=== PATIENT | female | born 1975 ===

== ENCOUNTER 2018-06-18 14:00 | Outpatient (CLI) | payer OTHER | END 2018-06-18 14:01 | disposition home or self-care (01) | LOC: C.USIC 14:00 | DX: N93.9 Abnormal uterine and vaginal bleeding, unspecified (principal) ==

== ENCOUNTER 2018-07-13 22:22 | Emergency (ER) | payer OTHER ==
[2018-07-13 22:33] VITALS: RESP 18; O2SAT 98
--- NOTE | 2018-07-13 23:23 | C.PDOC ---
History Of Present Illness 42 year old female presents to the ED c/o itching of the eyes, ears, throat and face for the past weeks. Patient also c/o sore throat and intermittent headache. Patient reports having seasonal allergies back in [place], first time in the [place]. Patient denies fever, chills, visual changes, SOB, wheezing, nausea, vomit, rash. Time Seen by Provider: 07/13/18 22:48 Chief Complaint (Nursing): Cough, Cold, Congestion History Per: Patient History/Exam Limitations: no limitations Onset/Duration Of Symptoms: Days Current Symptoms Are (Timing): Still Present Recent travel outside of the [place]: No Additional History Per: Patient Past Medical History Reviewed: Historical Data, Nursing Documentation, Vital Signs Vital Signs: Last Vital Signs Temp 98.8 F 07/13/18 22:28 Pulse 77 07/13/18 22:28 Resp 18 07/13/18 22:28 BP 139/90 07/13/18 22:28 Pulse Ox 98 07/13/18 22:28 Primary Care Provider: FAMILY PROVIDER,NO - Medical History PMH: No Chronic Diseases Surgical History: No Surg Hx Family History: States: Unknown Family Hx - Social History Hx Alcohol Use: No Hx Substance Use: No Review Of Systems Constitutional: Negative for: Fever, Chills Eyes: Positive for: Other (itching) ENT: Positive for: Throat Pain. Negative for: Ear Discharge, Nose Discharge, Nose Congestion Respiratory: Negative for: Cough, Shortness of Breath, Wheezing Gastrointestinal: Negative for: Vomiting, Diarrhea Skin: Negative for: Rash Neurological: Positive for: Headache. Negative for: Dizziness Physical Exam - Physical Exam Appears: Non-toxic, No Acute Distress Skin: Normal Color, Warm, Dry, No Rash Head: Atraumatic, Normacephalic Eye(s): bilateral: Normal Inspection (tearing ), PERRL, EOMI Ear(s): Bilateral: Normal Nose: Other (enlarged nasal turbinates) Tongue: No Swelling Lips: No Swelling Throat: Normal, No Erythema, No Exudate Neck: Normal ROM, Supple Chest: Symmetrical Cardiovascular: Rhythm Regular Respiratory: Normal Breath Sounds, No Rales, No Rhonchi, No Wheezing Neurological/Psych: Oriented x3, Normal Speech, Normal Cognition Gait: Steady ED Course And Treatment O2 Sat by Pulse Oximetry: 98 (ON RA) Pulse Ox Interpretation: Normal Progress Note: Plan: - Benadryl 50 mg PO. - Motrin 600 mg PO. Patient reports improvement after medications were given. Patient remained stable in [place], breathing with no difficulty. Patient advised to take antihistamines at home. Patient advised to follow up with PMD. 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 - Scribe Statement The provider has reviewed the documentation as recorded by the Scribe Robinson Manning All medical record entries made by the Karel were at my direction and personally dictated by me. I have reviewed the chart and agree that the record accurately reflects my personal performance of the history, physical exam, medical decision making, and the department course for this patient. I have also personally directed, reviewed, and agree with the discharge instructions and disposition.
[2018-07-13] MEDS ORDERED: DiphenhydrAMINE 12.5 mg/5 ml LIQ UD (5 ml) PO STA (23:26)
[2018-07-13 23:34] VITALS: BP 131/77; PULSE 74; TEMP 98.2
== END 2018-07-13 23:35 | disposition home or self-care (01) ==
LOC: MERGE 22:22 → C.ER 22:22
DX: J30.9 Allergic rhinitis, unspecified (principal)